=== PATIENT | female | born 1990 | race Caucasian/White ===

== ENCOUNTER 2022-03-09 05:48 | Inpatient (IN) | payer OTHER ==
[2022-03-07 14:30] LABS: Hemoglobin 10.7 g/dL (12.0-15.5); Mean Corpuscular HGB CONC 32.4 g/dL (32.0-36.0); Mean Corpuscular Hemoglobin 28.1 pg (27.0-33.0); Mean Corpuscular Volume 86.6 fl (81.6-98.3); Mean Platelet Volume 10.5 fl (7.4-10.4); Platelet Count 322 10x3/uL (150-450); RBC Distribution Width 14.3 % (11.5-14.5); Red Blood Cell (RBC) Count 3.81 10x6/uL (3.90-5.03); White Blood Cell (WBC) Count 10.4 10x3/uL (3.5-10.5)
[2022-03-07 15:11] LABS: Syphilis Antibody Nonreactive (Nonreactive); Syphilis Antibody Index 0.05 S/CO (<1.00 Non-Reactive)
[2022-03-07 15:12] LABS: HIV (1/2) Antibody/Antigen Non-Reactive (NonReactive); HIV 1/2 INDEX 0.05 S/CO (<1.00); Hep B Surf Ag Non-Reactive S/CO (NonReactive)
[2022-03-07 15:16] LABS: HBSAg Index 0.16 S/CO (0-0.99)
[2022-03-08 00:48] LABS: SARS-CoV-2 PCR by NAA Not Detected (NotDetected)
[2022-03-09] MEDS ORDERED: Bicitra 30 ML UDCUP PO PRN (05:58)
[2022-03-09] MEDS ORDERED: Promethazine HCl 25 MG/ML VIAL IM PRN ×2 (05:58→09:21)
[2022-03-09] MEDS ORDERED: Famotidine/PF 20 mg/2ml Vial SLOW IVP PRN (05:58)
[2022-03-09] MEDS ORDERED: hydrALAZINE 20 MG/ML VIAL SLOW IVP PRN ×2 (05:58→10:59)
[2022-03-09] MEDS ORDERED: Ondansetron PF 4 MG/2 ML Vial IVP PRN ×2 (05:58→09:21)
[2022-03-09] MEDS ORDERED: Lactated Ringer's 1,000 ML IV SCH (06:00)
[2022-03-09] MEDS ORDERED: ceFAZolin 2 GM/Dextrose 50 ML 2 GM in Premix Bag 1 BAG IVPB SCH (06:00)
[2022-03-09 06:12] VITALS: BMI 49.1
[2022-03-09] MEDS ORDERED: Morphine PF 10 MG/10 ML VIAL ONE (07:01)
[2022-03-09] MEDS ORDERED: Oxytocin 10 UNITS/ML VIAL ONE ×2 (07:01→08:55)
[2022-03-09] MEDS ORDERED: Phenylephrine 40 MG/NS 250 ML 250 ML ONE (07:01)
[2022-03-09] MEDS ORDERED: PHENYLEPHRINE-NS 100 MCG/ML 10 ML SYRINGE ONE (07:02)
[2022-03-09] MEDS ORDERED: Ketorolac Tromethamine 30 MG/ML VIAL ONE (08:55)
[2022-03-09] MEDS ORDERED: Moisturizing Cream (Eucerin) 113 GM JAR TOP PRN (09:21)
[2022-03-09] MEDS ORDERED: Fentanyl 100 MCG/2 ML VIAL SLOW IVP PRN (09:21)
[2022-03-09] MEDS ORDERED: Promethazine HCl 25 MG SUPP PR PRN (09:21)
[2022-03-09] MEDS ORDERED: Naloxone HCl 0.4 mg/ml Vial IVP PRN ×2 (09:21)
[2022-03-09] MEDS ORDERED: HYDROmorphone 2 MG/ML VIAL SLOW IVP PRN (09:21)
[2022-03-09] MEDS ORDERED: Naloxone HCl 0.4 mg/ml Vial IV PRN (09:21)
[2022-03-09] MEDS ORDERED: Ondansetron HCl/PF 4 MG/2 ML Vial IVP PRN (09:21)
[2022-03-09] MEDS ORDERED: Meperidine HCl/PF 25 MG/ML VIAL SLOW IVP PRN (09:21)
[2022-03-09] MEDS ORDERED: diphenhydrAMINE 50 MG/ML VIAL IVP PRN (09:21)
[2022-03-09] MEDS ORDERED: Ketorolac Tromethamine 30 MG/ML VIAL IVP SCH (09:30)
[2022-03-09] MEDS ORDERED: Communication Order-Pharmacy FS SCH (09:30)
[2022-03-09] MEDS ORDERED: Acetaminophen 325 MG TAB PO PRN (10:59)
[2022-03-09] MEDS ORDERED: Simethicone Chewable 80 MG TAB PO PRN (10:59)
[2022-03-09] MEDS ORDERED: Bisacodyl 10 MG SUPP PR PRN (10:59)
[2022-03-09] MEDS ORDERED: diphenhydrAMINE 25 MG CAP PO PRN (10:59)
[2022-03-09] MEDS ORDERED: Lanolin Ointment 7 GM TUBE TOP PRN (10:59)
[2022-03-09] MEDS ORDERED: NS w/ Oxytocin 30 units 500 ML ONE (11:07)
[2022-03-09] MEDS: Ketorolac Tromethamine 30 MG/ML VIAL IVP PRN (23:31)
[2022-03-09] MEDS: Docusate 100 MG CAP PO SCH (23:31)
[2022-03-10 04:36] LABS: Hemoglobin 8.6 g/dL (12.0-15.5); Mean Corpuscular Hemoglobin 28.5 pg (27.0-33.0); Mean Corpuscular Volume 86.4 fl (81.6-98.3); Platelet Count 239 10x3/uL (150-450); RBC Distribution Width 14.4 % (11.5-14.5); Red Blood Cell (RBC) Count 3.02 10x6/uL (3.90-5.03); White Blood Cell (WBC) Count 10.6 10x3/uL (3.5-10.5)
[2022-03-10] MEDS: Ketorolac Tromethamine 30 MG/ML VIAL IVP PRN (06:19)
[2022-03-10] MEDS: Docusate 100 MG CAP PO SCH ×2 (09:28→21:34)
[2022-03-10] MEDS: Ferrous Sulfate 325 MG TAB PO SCH (09:28)
[2022-03-10] MEDS: HYDROcodone/Acetaminophen 5/325 mg Tablet PO PRN ×3 (09:29→22:56)
[2022-03-10] MEDS: Ibuprofen 800 MG TAB PO SCH ×2 (13:20→21:34)
[2022-03-11] MEDS: HYDROcodone/Acetaminophen 5/325 mg Tablet PO PRN ×2 (05:50→08:30)
[2022-03-11] MEDS: Ibuprofen 800 MG TAB PO SCH ×2 (05:51→13:38)
[2022-03-11] MEDS ORDERED: HYDROcodone/Acetaminophen 5/325 mg Tablet PO PRN (07:09)
[2022-03-11 07:47] VITALS: BP 99/50; TEMP 98.4
[2022-03-11] MEDS: Docusate 100 MG CAP PO SCH (08:30)
[2022-03-11] MEDS: Ferrous Sulfate 325 MG TAB PO SCH (08:30)
== END 2022-03-11 14:45 | disposition home or self-care (01) | DRG 787 ==
LOC: CSHLD 05:48 → CSHPED 12:15
PROVIDERS: ADMIT Family Medicine; ATTEND Family Medicine
PROC: 10D00Z1 Extraction of Products of Conception, Low, Open Approach (ICD-10-PCS; principal; 2022-03-09)
DX: O34.211 Maternal care for low transverse scar from previous cesarean delivery (principal); D62 Acute posthemorrhagic anemia; Z3A.39 39 weeks gestation of pregnancy; Z37.0 Single live birth; Z20.822 Contact with and (suspected) exposure to COVID-19; E66.9 Obesity, unspecified; O99.214 Obesity complicating childbirth; O99.824 Streptococcus B carrier state complicating childbirth; Z90.49 Acquired absence of other specified parts of digestive tract; O90.81 Anemia of the puerperium
CPT/HCPCS: 36415; 85027; 86780; 86850; 86900; 86901; 87340; 87389; J1885; J2274; J2590; U0003; U0005